=== PATIENT | female | born 1990 | race Caucasian/White ===

== ENCOUNTER → 2020-05-12 08:44 | Outpatient (BNVA) | payer MEDICAID, SELFPAY | PROVIDERS: Family Provider Nurse Practitioner Family; Visit Provider Psychiatry & Neurology Psychiatry | DX: F31.9 Bipolar disorder, unspecified (principal); Z63.0 Problems in relationship with spouse or partner | CPT/HCPCS: 90792 ==

== ENCOUNTER → 2020-06-27 14:48 | Outpatient (BNVA) | payer MEDICAID, SELFPAY | PROVIDERS: Family Provider Nurse Practitioner Family; Visit Provider Psychiatry & Neurology Psychiatry | DX: F31.9 Bipolar disorder, unspecified (principal); Z63.0 Problems in relationship with spouse or partner; F41.9 Anxiety disorder, unspecified | CPT/HCPCS: 99214 ==

== ENCOUNTER → 2020-09-19 15:28 | Outpatient (BNVA) | payer MEDICAID, SELFPAY | PROVIDERS: Family Provider Nurse Practitioner Family; Visit Provider Psychiatry & Neurology Psychiatry | DX: F31.9 Bipolar disorder, unspecified (principal); Z63.0 Problems in relationship with spouse or partner; F41.9 Anxiety disorder, unspecified | CPT/HCPCS: 99214 ==

== ENCOUNTER → 2020-10-18 14:44 | Outpatient (BNVA) | payer MEDICAID, SELFPAY | PROVIDERS: Family Provider Nurse Practitioner Family; PCP Nurse Practitioner Family; Visit Provider Obstetrics & Gynecology | DX: Z12.4 Encounter for screening for malignant neoplasm of cervix (principal); Z01.419 Encounter for gynecological examination (general) (routine) without abnormal findings | CPT/HCPCS: 88175 ==

== ENCOUNTER → 2020-10-19 15:49 | Outpatient (BNVA) | payer MEDICAID, SELFPAY | PROVIDERS: Family Provider Nurse Practitioner Family; PCP Nurse Practitioner Family; Visit Provider Psychiatry & Neurology Psychiatry | DX: F41.9 Anxiety disorder, unspecified (principal); F31.9 Bipolar disorder, unspecified; Z63.0 Problems in relationship with spouse or partner | CPT/HCPCS: 99213 ==

== ENCOUNTER → 2020-10-25 14:50 | Outpatient (BNVA) | payer MEDICAID, SELFPAY | PROVIDERS: Family Provider Nurse Practitioner Family; PCP Nurse Practitioner Family; Visit Provider Counselor Professional | DX: F31.9 Bipolar disorder, unspecified (principal); F41.9 Anxiety disorder, unspecified | CPT/HCPCS: 90834 ==

== ENCOUNTER 2020-11-01 02:39 | Emergency (ER) | payer MEDICAID, SELFPAY ==
[2020-11-01 02:59] VITALS: BP 186/100; PULSE 81; RESP 16; TEMP 36.9; O2SAT 98; BMI 37.8
--- NOTE | 2020-11-01 03:08 | ED_ITS ---
HPI - URI/Sore Throat General: Chief Complaint: Upper Respiratory Infection Stated Complaint: anxiety/ congestion Time Seen by Provider: 11/01/20 02:41 Source: patient and RN notes reviewed History of Present Illness: HPI Narrative: Patient presents to the emergency department complaint of sinus congestion cough. Patient describes face pain. Patient states she has her typical sinus type infection for this time of the year. Describes with greenish TMs to her rhinorrhea. Patient denies fever. MD elicited complaint: cough, rhinorrhea, nasal congestion and sinus pain Associated symptoms: Reports abdominal pain and nasal congestion; Deny chills, chest pain, fever(s), headache(s), nausea or vomiting Review of Systems General: Reports: 10 or more systems reviewed and unremarkable except in HPI and below Const: Denies: fever(s), chills, body aches or fatigue Eyes: Denies: change in vision or blurry vision ENMT: Reports: nasal congestion and post nasal drip; Denies: throat pain, hoarseness or mouth pain Card: Denies: chest pain, palpitations, irregular heart rhythm, edema, swelling of feet/ankles or lightheadedness Resp: Denies: dyspnea, productive cough, non-productive cough, wheezing or pain on inspiration GI: Reports: abdominal pain; Denies: nausea or vomiting : Reports: flank pain; Denies: difficulty voiding, dysuria, urinary frequency, urinary urgency or urinary hesitancy Musc: Denies: neck pain, back pain, extremity pain, extremity swelling, joint pain, joint swelling, joint redness, joint warmth or limited range of motion Skin/Breast: Denies: rash, pruritus, erythema or skin tenderness Neuro: Denies: headache(s), numbness in extremities or weakness in extremities Psych: Denies: anxiety or depression PFS ED PFSH: Medical History Bipolar disorder Diagnosed in her 20s and is controlled on medication managed by her primary care provider. 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 This is managed by her primary care provider and she does not clearly see an business center manager. No pertinent past medical history Denies diabetes, asthma, hypertension, seizures, DVT/PE PCP: Juliet Pena Surgical History History of myringotomy with tube placement, performed in 2010 Hx of laparoscopic gastric banding performed in April 2015, removed November 2018 at time of gastric bypass S/P gastric bypass 11/2018 Status post tonsillectomy and adenoidectomy performed in 2010 at same time of myringotomy. Family History Mother Thyroid condition Diabetes Stroke Heart disease Grandmother Thyroid condition maternal Hypertension maternal grandmother Diabetes maternal Heart disease maternal Stroke maternal Breast cancer matnernal, diagnosed at age 40 Family/Other Thyroid condition Maternal aunt, paternal uncle Hypertension maternal aunt Diabetes maternal aunt x 3 Heart disease maternal aunt Brother Thyroid condition Hypertension Denies family history of Colon cancer Ovarian cancer Hyperlipidemia Uterine cancer Female Reproductive History: Date of last menstrual period: 10/09/20 Physical Exam Const: COMMON NORMALS: no acute distress, average body habitus, patient oriented x3, no limitations, healthy appearing, alert and well nourished HENMT: COMMON NORMALS: normocephalic, atraumatic, external ears normal, EAC's normal, TM's normal bilaterally, Normal external nose present and Normal nasal mucous membranes and turbinates present HEAD & SCALP: normocephalic and atraumatic NOSE: Normal external nose present and Normal nasal mucous membranes and turbinates present EXTERNAL EAR: Yes external ears normal EXTERNAL AUDITORY CANAL: EAC's normal TYMPANIC MEMBRANE: TM's normal bilaterally Neck/C-Spine: COMMON NORMALS: full ROM, no lymphadenopathy, supple, no meningeal signs, no JVD, Thyroid normal and No carotid bruits THYROID: Thyroid normal Chest: COMMONS NORMALS: normal inspection of the chest, normal palpation of entire chest wall, normal inspection of the breasts and normal palpation of the breasts Breast/axilla inspection: Yes normal inspection of the breasts BREAST/AXILLA PALPATION: Yes normal palpation of the breasts Resp: COMMON NORMALS: normal respiratory effort, No retractions, No use of accessory muscles, clear to auscultation bilaterally and percussion normal AUSCULTATION: clear to auscultation bilaterally PERCUSSION: percussion normal Cardio: COMMON NORMALS: no JVD, regular rate, regular rhythm, S1 normal heart sound present, S2 normal heart sound present, No gallops present (Cardio), No clicks present (Cardio), No murmurs present (Cardio), No rub (Cardio) and Peripheral pulses 2+ throughout RATE: regular rate RHYTHM: regular rhythm HEART SOUNDS: S1 normal heart sound present and S2 normal heart sound present PERIPHERAL PULSES: Peripheral pulses 2+ throughout GI: COMMON NORMALS: Normal to inspection, nondistended, normoactive bowel sounds present, Soft to palpation, non-tender, No hepatosplenomegaly present, no masses and no bruits PALPATION: Yes Soft to palpation and Yes No hepatosplenomegaly present : COMMON NORMALS: Yes no CVA tenderness, Yes normal external appearance, Yes normal appearance of the vagina, Yes normal appearance of the cervix, Yes normal bimanual exam, Yes No adnexal tenderness and Yes no masses BLADDER/KIDNEY EXAM: Yes no CVA tenderness BIMANUAL EXAM - VAGINA & UTERUS: Yes normal bimanual exam Back/Pelvis: COMMON NORMALS: no CVA tenderness, thoracic and lumbar spine normal to inspection, no thoracic nor lumbar tenderness, thoraco-lumbar ROM normal and straight leg raise negative bilaterally Extremity: COMMON NORMALS: normal to inspection, full ROM, capillary refill normal, no joint enlargement, no clubbing, cyanosis or edema, no calf tenderness and no pedal edema Neuro: COMMON NORMALS: patient oriented x3 SENSORIUM/ORIENTATION: Yes alert MENINGEAL SIGNS: Yes no meningeal signs Course ED course: Mom was offered nasal swabs for flu coronavirus and strep. Patient declined. Patient instructed to take Claritin 10 mg daily. And 25 mg at bedtime. Patient given a prescription for Zithromax and given the following instructions. For upper respiratory infection. Cool-mist humidifier as needed. Salt water gargles for sore throat if needed. May use any [id number] cough drop that has benzocaine as an active ingredient to help sooth throat. Encourage p.o. fluids. Take all medications if prescribed as directed. Follow- up with your primary care physician in 2 to 3 days. Tylenol Motrin as needed as needed for fever or pain. Vital Signs: Vital signs: Vital Signs Temperature 98.5 F 11/01/20 02:59 Pulse Rate 81 11/01/20 02:59 Respiratory Rate 16 11/01/20 02:59 Blood Pressure 186/100 11/01/20 02:59 Pulse Oximetry 98 11/01/20 02:59 MDM - URI/Sore Throat Differential Diagnosis: Upper Respiratory Differential Diagnosis: Likely upper respiratory infection, sinusitis and viral infection Medical Records: Attestation: I reviewed the patient's medical records. Discharge Plan Discharge Patient Disposition: Home Clinical Impression: Upper respiratory infection Condition: Stable Prescriptions: New azithromycin [Zithromax Z-Td] 250 mg tablet 250 mg PO DAILY 6 Days RF: 0 No Action levothyroxine 200 mcg capsule 200 mcg PO DAILY RF: 0 etonogestrel-ethinyl estradiol [NuvaRing] 0.12-0.015 mg/24 hr ring 1 vag ring vaginal .monthly Qty: 1 RF: 0 bupropion HCl [Wellbutrin SR] 150 mg tablet sustained-release 12 hr 150 mg PO BID 30 Days Qty: 60 RF: 3 lamotrigine [Lamictal] 200 mg tablet 200 mg PO DAILY 30 Days Qty: 30 RF: 3 sertraline 50 mg tablet 50 mg PO DAILY 30 Days Qty: 30 RF: 3 Discharge Orders: Discharge ED (Routine); Ordered 11/01/20 Ordered By: Gary Bahena Referrals: Juliet Pena [Primary Care Provider] - Celi Haas [Family Provider] - Discharge Diet: Advance as tolerated Discharge Activity: Resume usual activity Patient Instructions: Opioid Safety Activity Restrictions/Additional Instructions: Patient instructed to take Claritin 10 mg daily. And 25 mg at bedtime. Patient given a prescription for Zithromax and given the following instructions. For upper respiratory infection. Cool-mist humidifier as needed. Salt water gargles for sore throat if needed. May use any dacg-bjz-hbpwldg cough drop that has benzocaine as an active ingredient to help sooth throat. Encourage p.o. fluids. Take all medications if prescribed as directed. Follow-up with your primary care physician in 2 to 3 days. Tylenol Motrin as needed as needed for fever or pain. 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
[2020-11-01 03:26] VITALS: BP 155/99; PULSE 82; RESP 20; O2SAT 97
== END 2020-11-01 03:20 | disposition home or self-care (01) ==
PROVIDERS: Emergency Provider Emergency Medicine; Family Provider Nurse Practitioner Family; PCP Nurse Practitioner Family
DX: J06.9 Acute upper respiratory infection, unspecified (principal)
CPT/HCPCS: 99282

== ENCOUNTER → 2020-11-08 14:42 | Outpatient (BNVA) | payer MEDICAID, SELFPAY | PROVIDERS: Family Provider Nurse Practitioner Family; PCP Nurse Practitioner Family; Visit Provider Counselor Professional | DX: F31.9 Bipolar disorder, unspecified (principal); F41.9 Anxiety disorder, unspecified | CPT/HCPCS: 90834 ==

== ENCOUNTER → 2020-11-22 08:54 | Outpatient (BNVA) | payer MEDICAID, SELFPAY | PROVIDERS: Family Provider Nurse Practitioner Family; PCP Nurse Practitioner Family; Visit Provider Counselor Professional | DX: F31.9 Bipolar disorder, unspecified (principal); F41.9 Anxiety disorder, unspecified | CPT/HCPCS: 90834 ==

== ENCOUNTER → 2020-12-20 14:45 | Outpatient (BNVA) | payer MEDICAID, SELFPAY | PROVIDERS: Family Provider Nurse Practitioner Family; PCP Nurse Practitioner Family; Visit Provider Counselor Professional | DX: F31.9 Bipolar disorder, unspecified (principal); F41.9 Anxiety disorder, unspecified | CPT/HCPCS: 90834 ==

== ENCOUNTER → 2020-12-21 15:49 | Outpatient (BNVA) | payer MEDICAID, SELFPAY | PROVIDERS: Family Provider Nurse Practitioner Family; PCP Nurse Practitioner Family; Visit Provider Psychiatry & Neurology Psychiatry | DX: F31.9 Bipolar disorder, unspecified (principal); F41.9 Anxiety disorder, unspecified; Z63.0 Problems in relationship with spouse or partner | CPT/HCPCS: 99214 ==

== ENCOUNTER → 2021-04-02 14:54 | Outpatient (BNVA) | payer OTHER, SELFPAY | PROVIDERS: Family Provider Nurse Practitioner Family; PCP Nurse Practitioner Family; Visit Provider Psychiatry & Neurology Psychiatry | DX: F31.9 Bipolar disorder, unspecified (principal); Z63.0 Problems in relationship with spouse or partner; F41.9 Anxiety disorder, unspecified | CPT/HCPCS: 99214 ==

== ENCOUNTER → 2021-06-08 14:10 | Outpatient (BNVA) | payer MEDICAID, SELFPAY | PROVIDERS: Family Provider Nurse Practitioner Family; PCP Nurse Practitioner Family; Visit Provider Obstetrics & Gynecology | DX: Z20.822 Contact with and (suspected) exposure to COVID-19 (principal); Z30.2 Encounter for sterilization | CPT/HCPCS: 87635 ==

== ENCOUNTER 2021-06-14 06:29 | Day surgery (SDC) | payer MEDICAID, SELFPAY ==
[2021-06-13 14:05] VITALS: BMI 49.1
[2021-06-14] VITALS (10 sets, daily range): BP systolic 130–159; BP diastolic 72–103; PULSE 67–100; RESP 15–25; TEMP 36.3–36.9; O2SAT 93–100
[2021-06-14 06:59] LABS: OR HCG Qualitative Urine Negative (Negative)
[2021-06-14] MEDS: sodium chloride 0.9% 1,000 ML 30 ML IV (07:11)
--- NOTE | 2021-06-14 07:41 | W.PM.OPSUD ---
Surgery/Procedure H&P Update DATE OF PROCEDURE: June 14, 2021 DATE H&P PERFORMED: 06/04/21 H&P UPDATE INFORMATION: I have reviewed H&P completed within last 30 days, I have examined patient prior to procedure, No changes to prior documentation and H&P is in [facility] EMR on date indicated PREOP DIAGNOSIS: Multiparity desiring sterilization PLANNED PROCEDURE: Operation Date: 06/14/21 08:00 Proposed Procedures p Lap Fulg,Removal of Tubes Sterilization 04829 Z30.2(Not Applicable) - Margaret Valverde MD
--- NOTE | 2021-06-14 07:57 | ANES.PREANE2 ---
Pre-Anesthetic Assessment Pre-Anesthetic Assessment: Height/Weight: Height 1.57 m Weight 122.016 kg Temp Pulse Resp BP Pulse Ox 97.4 F L 100 16 132/87 98 06/14/21 06:53 06/14/21 06:53 06/14/21 06:53 06/14/21 06:53 06/14/21 06:53 Preop Diagnosis: Multiparity desiring sterilization Proposed Procedure: Operation Date: 06/14/21 08:00 Proposed Procedures p Lap Fulg,Removal of Tubes Sterilization 36246 Z30.2(Not Applicable) - Margarte Valverde MD Was Beta Sol taken within 24 hours: N/A Was Clonidine taken within 24 hours: N/A Last intake: Intake Last Liquid Date 06/13/21 Last Liquid Time 21:30 Last Solid Date 06/13/21 Last Solid Time 21:30 Social: Social History: Tobacco Exam: Pre-Anes Outpt Exam: alert, oriented x 3, clear to auscultation bilaterally and regular rate & rhythm Airway: Submandibular: WNL Cervical ROM: WNL MP: 2 History/ROS: No significant complaints Metabolic: Metabolic: Thyroid Neuropsych: Neuropsych: Bipolar Anesthetic Plan: ASA status: 2 Anesthesia: Anesthesia Evaluation and General Risk of > 500 ml blood loss (7ml/kg in children): No Meds/Allergies Current Medications: Current Medications Generic Name Dose Route Start Last Admin Trade Name Freq PRN Reason Stop Dose Admin Sodium Chloride 1,000 mls @ 30 ml s/hr 06/14/21 06:45 06/14/21 07:11 Sodium Chloride 0.9% IV 06/15/21 06:44 30 mls/hr .Q24H PARISA Administration PFSH Anesthesia PFSH: Medical History Bipolar disorder Diagnosed in her 20s and is controlled on medication managed by her primary care provider. 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 This is managed by her primary care provider and she does not clearly see an sharepoint solutions developer. No pertinent past medical history Denies diabetes, asthma, hypertension, seizures, DVT/PE PCP: Juliet Pena Surgical History History of myringotomy with tube placement, performed in 2010 Hx of laparoscopic gastric banding performed in April 2015, removed November 2018 at time of gastric bypass S/P gastric bypass 11/2018 Status post tonsillectomy and adenoidectomy performed in 2010 at same time of myringotomy. Family History Mother Thyroid condition Diabetes Stroke Heart disease Grandmother Thyroid condition maternal Hypertension maternal grandmother Diabetes maternal Heart disease maternal Stroke maternal Breast cancer matnernal, diagnosed at age 40 Family/Other Thyroid condition Maternal aunt, paternal uncle Hypertension maternal aunt Diabetes maternal aunt x 3 Heart disease maternal aunt Brother Thyroid condition Hypertension Denies family history of Colon cancer Ovarian cancer Hyperlipidemia Uterine cancer Female Reproductive History: Date of last menstrual period: 05/23/21 Data Anesthesia Other Labs: Laboratory Results - last 48 hr 06/14/21 06:38 Urine HCG, Qual Negative Cardiac Studies: No Data to Display
[2021-06-14 08:03] LABS: Basophils % 0.5 %; Eosinophils # 0.1 10^3/uL (0.0-0.8); Eosinophils % 1.8 %; Hematocrit 36.1 % (37.0-47.0); Lymphocytes # 1.8 10^3/uL (0.8-4.8); Lymphocytes % 29.4 %; Mean Corpuscular HGB Conc 30.5 g/dL (30.0-36.0); Mean Corpuscular Hemoglobin 23.6 pg (28.0-34.0); Mean Corpuscular Volume 77.3 fl (81-99); Monocytes # 0.4 10^3/uL (0.2-0.9); Monocytes % 6.7 %; Neutrophils # 3.65 10^3/uL (1.8-7.7); Neutrophils % 61.4 %; Nucleated Red Blood Cells % 0 %; Platelet Count 270 10^3/cmm (130-400); Red Blood Count 4.67 10^6/uL (4.1-5.3); Red Cell Distribution Width 15.5 % (12.1-15.1)
--- NOTE | 2021-06-14 09:45 | P.OP_ITS ---
Operative Report Date of procedure: June 14, 2021 OPERATIVE REPORT Date of surgery: 06/14/2021 Date of dictation: 06/14/2021 Preoperative diagnosis: Morbid obesity with a BMI of 49, bipolar disorder, multiparity desiring sterilization with total salpingectomy Postoperative diagnosis/findings: Examination under anesthesia 6 to 8-week size anteverted uterus, minimal prolapse noted. Same, normal tubes and ovaries bilaterally-right tube had a subcentimeter paratubal cyst which was removed, normal uterus, normal appendix noted, no DIRECTOR OF BUSINESS SERVICES pathology Procedure done: Laparoscopic bilateral total salpingectomy for sterilization Specimens removed/disposition of specimens: Right and left fallopian tube sent to pathology Surgeon: Dr. Margaret Green golf player assistant: Keesha Branham Anesthesia: General endotracheal tube anesthesia Estimated blood loss: Less than 25 ml Intravenous fluids: 700 mL of LR Urine output: 100 mL of clear urine at the end of procedure Medications: As per anesthesia records Complications: None, patient was extubated and taken to the recovery room in a stable condition. PROCEDURE: After consents were signed patient was taken to the operating room where she was placed under general anesthesia without any difficulty. She was placed supine on the table in the lithotomy position. Exam under anesthesia revealed findings noted above. She was then prepped and draped in usual sterile fashion. Weighted speculum and anterior wall retractors were placed in the vagina, cervix visualized and grasped with a tenaculum. ZUMI uterine manipulator was placed into the uterus without any difficulty. Catheter was placed, instruments were removed from the vagina and the legs were lowered. Attention was turned towards the abdomen where local anesthetic was injected in to her umbilicus. A 10 mm skin incision was made and a 10 mm port was placed through the umbilicus using an open technique--- fascia was identified and tented up with [place] clamps and directly incised using curved Mayos. Peritoneum was then bluntly entered digitally and palpation revealed no adhesions except for preperitoneal fat around site of entry. White trocar was then attached to the fascia and inflated. Once intra-abdominal entry was confirmed gas was turned on and intra-abdominal opening pressure was 2. The abdomen is insufflated to the pressure was 14. Survey of the abdomen revealed findings noted above. Two 5 mm trocar was placed into the left and right lower quadrant under direct visualization after injecting local anesthetic. The Voyant device was used to clamp, cauterize and then cut the mesosalpinx under the fallopian tube starting at the fimbriated end and moving towards the uterus. This was done in a sequen tial fashion in such a way that the entire fallopian tube was from the sidewall and the uterus. The small cornual stump was cauterized as well. This was done first on the right side and then the left side without any difficulty. The right and left fallopian tubes were taken out of the umbilical port without any difficulty. The right paratubal cyst was taken out as well at time of rem oval of the right fallopian tube. No bleeding was noted at sites of surgery. Trochars were removed under direct visualization. All instruments removed from the abdomen and the abdomen was desufflated. The fascia on the umbilical port was closed with 0 Vicryl in a continuous fashion and good reapproximation was obtained-care was taken to tent up the fascia throughout the closure. The skin incisions was closed with 4-0 Monocryl in a subcuticular fashion good reapproximation and hemostasis was noted. The incisions were dressed with Steri- Strips Telfa and Tegaderm. The ZUMI and Khan catheter were removed and good hemostasis was noted. The patient was extubated without any difficulty and taken to the recovery room in a stable condition. FOLLOW UP: Follow-up in 2 weeks and 6 weeks with surgeon MEDICATION ON DISCHARGE: Colace 100 mg by mouth every 12 hours when necessary constipation, 30 tablets, no refills Ibuprofen 800 mg by mouth every 8 hours when necessary pain, 60 tablets, no ref ills. [place] 5/325 mg 1 tablet by mouth every 6 hours when necessary pain,25 tablets, no refills Continue other home medication-stop NuvaRing DISPOSITION: Home in a stable condition This documentation was created by [employer] protein chemist software (known for inherent protein chemist error). Every effort was made to assure accuracy of protein chemist. Any obvious errors or omissions should be clarified with the author of the document. Pre-op Diagnosis: Multiparity desiring sterilization
[2021-06-14] MEDS: HYDROcodone-acetaminophen 5-325 mg Tablet 1 TAB PO (10:10)
[2021-06-14] MEDS: ibuprofen 800 mg tablet PO (10:42)
--- NOTE | 2021-06-14 12:53 | ANE.PACU2 ---
Inpatient post-anesthesia follow up: Airway intact: Yes Vital signs: Temperature 97.9 F Pulse Rate 80 Respiratory Rate 16 Blood Pressure 155/82 Pulse Oximetry 98 Oxygen Delivery Me thod Room Air Oxygen Flow Rate 2.0 Fraction of Inspir ed Oxygen Hydration adequate: Yes Nausea and vomiting: No Pain level: 2 Mental status: Baseline
== END 2021-06-14 11:37 | disposition home or self-care (01) ==
PROVIDERS: PCP Nurse Practitioner Family; Visit Provider Obstetrics & Gynecology
PROC: (CPT 58661; principal; 2021-06-14 08:00)
DX: Z30.2 Encounter for sterilization (principal); N85.4 Malposition of uterus; N83.8 Other noninflammatory disorders of ovary, fallopian tube and broad ligament; E06.3 Autoimmune thyroiditis; F17.210 Nicotine dependence, cigarettes, uncomplicated; F31.9 Bipolar disorder, unspecified; E66.01 Morbid (severe) obesity due to excess calories; Z68.42 Body mass index [BMI] 45.0-49.9, adult; Z98.84 Bariatric surgery status; Z83.49 Family history of other endocrine, nutritional and metabolic diseases
CPT/HCPCS: 58661; 36415; 81025; 84703; 85025; 86850; 86900; 88302; J1100; J1200; J2250; J2405; J2704; J2710; J3010; J3490; J7030

== ENCOUNTER 2021-07-22 10:08 | Emergency (ER) | payer MEDICAID, SELFPAY ==
[2021-07-22 10:15] VITALS: BP 178/136; PULSE 91; RESP 18; TEMP 36.9; O2SAT 98; BMI 52.0
--- NOTE | 2021-07-22 10:22 | XRR_ITS ---
PROCEDURE INFORMATION: Exam: XR Chest Exam date and time: 07/22/2021 10:22 AM Age: 30 years old Clinical indication: Cough TECHNIQUE: Imaging protocol: XR of the chest. Views: 1 view. Total images: 1 COMPARISON: CR Humerus RIGHT* [id number] 11/30/2017 1:17 PM FINDINGS: Lungs: Unremarkable. No consolidation. Pleural spaces: Unremarkable. No pleural effusion. No pneumothorax. Heart/Mediastinum: Unremarkable. No cardiomegaly. Bones/joints: Unremarkable. XR/XR chest 1V portable [id number] IMPRESSION: No acute findings. Radiation Dose CTDIVOL = (mGy): DLP = (mGy-cm)
--- NOTE | 2021-07-22 10:24 | ED_ITS ---
HPI - COVID General: Chief Complaint: Upper Respiratory Infection Stated Complaint: cough sob sore throat unable taste Time Seen by Provider: 07/22/21 10:22 Source: patient Mode of arrival: ambulatory Limitations: no limitations Triage information: Has fever, cough or shortness of breath . No known COVID + exposure last 14 days History of Present Illness: HPI Narrative: Day 5 of illness complaint of upper respiratory congestion, cough, shortness of breath with exertion. Lost sense of smell or taste within the last 24 hours. Covid-19 vaccinated as of November 2020 complaint: has COVID symptoms Prior covid testing: no COVID 19 common symptoms: positive cough, non-productive cough, dyspnea, fatigue, body aches, loss of sense of smell and/or taste, throat pain, nasal congestion and nausea COVID 19 other sytmptoms: negative chest pressure, chest pain, pleuritic pain, requiring oxygen, requiring more oxygen, respiratory distress, cyanosis, lethargy, confusion, new neurological complaints or other concerning symptoms Onset (ago): day(s) (5 days ago) Severity: mild Treatment prior to arrival: cold medicine COVID Results: SARS-CoV-2 Antigen (Rapid) Negative (Negative) 07/22/21 10:36 07/22/21 SARS-CoV-2 RNA (RT-PCR) Not detected (NOT DETECTED) 06/08/21 14:10 06/08/21 Review of Systems General: Reports: 10 or more systems reviewed and unremarkable except in HPI and below Const: Reports: body aches and fatigue ENMT: Reports: throat pain and nasal congestion Card: Denies: chest pain Resp: Reports: dyspnea and non-productive cough GI: Reports: nausea Neuro: Denies: confusion PFSH ED PFSH: Medical History (Updated 07/22/21 @ 12:08 by Elana Benitez APRN) Bipolar disorder Diagnosed in her 20s and is controlled on medication managed by her primary care provider. 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 This is managed by her primary care provider and she does not clearly see an recruitment advertising manager. No pertinent past medical history Denies diabetes, asthma, hypertension, seizures, DVT/PE PCP: Juliet Pena Surgical History (Updated 07/22/21 @ 10:40 by Elana Benitez APRN) History of myringotomy with tube placement, performed in 2010 Hx of laparoscopic gastric banding performed in April 2015, removed November 2018 at time of gastric bypass S/P gastric bypass 11/2018 Status post tonsillectomy and adenoidectomy performed in 2010 at same time of myringotomy. Status post tubal ligation 06/14/2021----laparoscopic bilateral salpingectomy for sterilization performed by Dr. Green at [facility] [place]. Pathology showed benign fallopian tubes bilaterally without malignancy Family History Mother Thyroid condition Diabetes Stroke Heart disease Grandmother Thyroid condition maternal Hypertension maternal grandmother Diabetes maternal Heart disease maternal Stroke maternal Breast cancer matnernal, diagnosed at age 40 Family/Other Thyroid condition Maternal aunt, paternal uncle Hypertension maternal aunt Diabetes maternal aunt x 3 Heart disease maternal aunt Brother Thyroid condition Hypertension Denies family history of Colon cancer Ovarian cancer Hyperlipidemia Uterine cancer Female Reproductive History: Date of last menstrual period: 05/23/21 Physical Exam Const: COMMON NORMALS: no acute distress, average body habitus, patient oriented x3, no limitations, alert and well nourished GENERAL APPEARANCE: cooperative, comfortable and well kempt NUTRITIONAL APPEARANCE: obese HENMT: COMMON NORMALS: normocephalic, atraumatic, hearing grossly normal bilaterally, external ears normal, EAC's normal, TM's normal bilaterally, Normal external nose present, Normal nasal mucous membranes and turbinates present and moist oral mucous membranes HEAD & SCALP: normal to inspection, normocephalic and atraumatic NOSE: Normal external nose present and Normal nasal mucous membranes and turbinates present EXTERNAL EAR: Yes external ears normal EXTERNAL AUDITORY CANAL: EAC's normal TYMPANIC MEMBRANE: TM's normal bilaterally Eye: COMMON NORMALS: Equal, round and reactive pupils present, EOMs intact bilaterally, conjunctivae normal and normal visual olson by confrontation GENERAL EYE: appearance normal, both eyes and all related structures CONJUNCTIVA: Yes conjunctivae normal PUPIL: Yes Equal, round and reactive pupils present Neck/C-Spine: COMMON NORMALS: full ROM, no lymphadenopathy, supple and no JVD Lymph: LYMPHATIC: no lymphadenopathy noted Resp: COMMON NORMALS: normal respiratory effort, No retractions, No use of accessory muscles and clear to auscultation bilaterally EFFORT & INSPECTION: Yes able to speak in complete sentences AUSCULTATION: clear to auscultation bilaterally Cardio: COMMON NORMALS: no JVD, regular rate, regular rhythm, S1 normal heart sound present and S2 normal heart sound present RATE: regular rate RHYTHM: regular rhythm HEART SOUNDS: S1 normal heart sound present and S2 normal heart sound present GI: COMMON NORMALS: Normal to inspection, nondistended, normoactive bowel sounds present, Soft to palpation and non-tender PALPATION: Yes Soft to palpation Extremity: GENERAL: Yes normal exam except as noted Neuro: COMMON NORMALS: patient oriented x3 SENSORIUM/ORIENTATION: Yes alert Psych: APPEARANCE: Yes well kempt Skin: COMMON NORMALS: no rashes or lesions noted and no wounds GENERAL SKIN EXAM: no rashes or lesions noted Course ED course: Symptoms started 5 days prior fatigue headache along with nasal congestion and cough. Awoke in the last 24 hours with anosmia presented to the ER for this reason. Vital Signs: Vital signs: Vital Signs Temperature 98.4 F 07/22/21 10:15 Pulse Rate 69 07/22/21 10:40 Respiratory Rate 18 07/22/21 10:40 Blood Pressure 167/119 07/22/21 10:40 Pulse Oximetry 98 07/22/21 10:40 MDM - COVID MDM Narrative: Medical decision making narrative: Rapid Covid, influenza, rapid strep all negative. PCR pending. Patient is to continue isolation until PCR results, and schedule follow-up appointment with primary care provider. Differential Diagnosis: Differential diagnosis: Likely COVID 19, influenza, other viral infection and pneumonia Medical Records: Attestation: I reviewed the patient's medical records. Lab Data: Attestation: I reviewed the patient's lab results. Lab results narrative: Recent blood loss related to heavy menstrual flow, patient is being followed by women's health. Anemia was present prior to her procedure 4 weeks ago, worsened since procedure due to heavy flow. Labs: Lab Results 07/22/21 07/22/21 07/22/21 10:36 10:49 10:49 WBC 7.3 10^3/uL 10^3/ uL (4.0-10.0) RBC 4.38 10^6/uL 10^6 /uL (4.1-5.3) Hgb 10.3 g/dL L g/dL (11.5-15.3) Hct 33.1 % L % (37.0-47.0) MCV 75.6 fl L fl (81-99) MCH 23.5 pg L pg (28.0-34.0) MCHC 31.1 g/dL g/dL (30.0-36.0) RDW 15.0 % % (12.1-15.1) Plt Count 273 10^3/cmm 10^3 /cmm (130-400) MPV 10.0 fL fL (7.4-10.4) Neut % (Auto) 60.1 % % Lymph % (Auto) 29.5 % % [place] % (Auto) 8.1 % % Eos % (Auto) 1.5 % % Baso % (Auto) 0.5 % % Neut # (Auto) 4.40 10^3/uL 10^3 /uL (1.8-7.7) Lymph # (Auto) 2.2 10^3/uL 10^3/ uL (0.8-4.8) [place] # (Auto) 0.6 10^3/uL 10^3/ uL (0.2-0.9) Eos # (Auto) 0.1 10^3/uL 10^3/ uL (0.0-0.8) Baso # (Auto) 0.0 10^3/uL 10^3/ uL (0.0-0.1) Nucleated RBC % (a uto) 0.3 % % Nucleated RBCs # 0.0 /100WBC /100W BC Sodium 138 mmol/L mmol/L (136-145) Potassium 3.6 mmol/L mmol/L (3.5-5.1) Chloride 102 mmol/L mmol/L (98-107) Anion Gap 18.6 (5-19) BUN 9 mg/dL mg/dL (6-20) Creatinine 0.6 mg/dL mg/dL (0.5-0.9) GFR Calculation 116.6 mL/min mL/m in (90-130) Glucose 84 mg/dL mg/dL (65-115) Total Bilirubin 0.3 mg/dL mg/dL (0.15-1.2) Alkaline Phosphata se 94 IU/L IU/L (35-105) Globulin 2.4 g/dL g/dL (1.3-4.6) Free T4 0.86 ng/dL ng/dL (0.82-1.77) HCG, Qual Influenza Type A A g Influenza Type B A g SARS-CoV-2 Ag (Rap id) Negative (Negative) Group A Strep Rapi d 07/22/21 07/22/21 07/22/21 10:49 11:06 11:06 WBC RBC Hgb Hct MCV MCH MCHC RDW Plt Count MPV Neut % (Auto) Lymph % (Auto) [place] % (Auto) Eos % (Auto) Baso % (Auto) Neut # (Auto) Lymph # (Auto) [place] # (Auto) Eos # (Auto) Baso # (Auto) Nucleated RBC % (a uto) Nucleated RBCs # Sodium Potassium Chloride Anion Gap BUN Creatinine GFR Calculation Glucose Total Bilirubin Alkaline Phosphata se Globulin Free T4 HCG, Qual Negative (Negative) Influenza Type A A g Negative (Negative) Influenza Type B A g Negative (Negative) SARS-CoV-2 Ag (Rap id) Group A Strep Rapi d Negative (Negative) COVID Results: SARS-CoV-2 Antigen (Rapid) Negative (Negative) 07/22/21 10:36 07/22/21 SARS-CoV-2 RNA (RT-PCR) Not detected (NOT DETECTED) 06/08/21 14:10 06/08/21 Discharge Plan Discharge Patient Disposition: Home Clinical Impression: Sinusitis Qualifiers: Sinusitis location: frontal Chronicity: acute Recurrence: non-recurrent Qualified Code(s): J01.10 - Acute frontal sinusitis, unspecified Condition: Stable Prescriptions: No Action levothyroxine 200 mcg capsule 200 mcg PO DAILY RF: 0 bupropion HCl [Wellbutrin SR] 150 mg tablet sustained-release 12 hr 150 mg PO BID 30 Days Qty: 60 RF: 3 lamotrigine [Lamictal] 200 mg tablet 200 mg PO DAILY 30 Days Qty: 30 RF: 3 hydrocodone-acetaminophen 5-325 mg tablet 1 tab PO Q6H PRN (Reason: pain) RF: 0 sulfamethoxazole-trimethoprim [Bactrim DS] 800-160 mg tablet 1 tab PO BID 7 Days Qty: 14 RF: 0 ibuprofen 800 mg tablet 800 mg PO Q8H Qty: 30 RF: 0 docusate sodium 100 mg Capsule 100 mg PO BID PRN (Reason: constipation) Qty: 30 RF: 0 Discharge Orders: Discharge ED (Routine); Ordered 07/22/21 Ordered By: Elana Benitez Referrals: Juliet Pena [Primary Care Provider] - Discharge Diet: Usual diet Discharge Activity: Resume usual activity Patient Instructions: Opioid Safety Activity Restrictions/Additional Instructions: Quarantine until final results of PCR Covid testing. Coding Level of Care Code ED Regulatory Compliance Engineer for [employer] Fwd Exam Comprehensive
[2021-07-22 10:40] VITALS: BP 167/119; PULSE 69; RESP 18; O2SAT 98
[2021-07-22 11:23] LABS: Basophils % 0.5 %; Eosinophils # 0.1 10^3/uL (0.0-0.8); Eosinophils % 1.5 %; Hematocrit 33.1 % (37.0-47.0); Hemoglobin 10.3 g/dL (11.5-15.3); Lymphocytes # 2.2 10^3/uL (0.8-4.8); Lymphocytes % 29.5 %; Mean Corpuscular HGB Conc 31.1 g/dL (30.0-36.0); Mean Corpuscular Hemoglobin 23.5 pg (28.0-34.0); Mean Corpuscular Volume 75.6 fl (81-99); Monocytes # 0.6 10^3/uL (0.2-0.9); Monocytes % 8.1 %; Neutrophils % 60.1 %; Nucleated Red Blood Cells % 0.3 %; Platelet Count 273 10^3/cmm (130-400); Red Blood Count 4.38 10^6/uL (4.1-5.3); White Blood Count 7.3 10^3/uL (4.0-10.0)
[2021-07-22 11:28] LABS: SARS Covid-2 Antigen Negative (Negative)
[2021-07-22 11:42] LABS: HCG, Serum Qual Negative (Negative)
[2021-07-22 11:46] LABS: Influenza A by IFA Negative (Negative); Influenza B by IFA Negative (Negative); Rapid Strep A Test Negative (Negative)
[2021-07-22 12:02] LABS: Alanine Aminotransferase 35 U/L (0-33); Albumin Level 3.4 g/dL (3.5-5.2); Alkaline Phosphatase 94 IU/L (35-105); Anion Gap 18.6 (5-19); Aspartate Amino Transferase 74 U/L (0-32); Blood Urea Nitrogen 9 mg/dL (6-20); Calcium 7.7 mg/dL (8.5-10.5); Carbon Dioxide 21 mmol/L (22-29); Chloride 102 mmol/L (98-107); Free T4 Free Thyroxine 0.86 ng/dL (0.82-1.77); Globulin 2.4 g/dL (1.3-4.6); Glomerular Filtration Rate 116.6 mL/min (90-130); Glucose 84 mg/dL (65-115); Osmolality Calculated 284 mOsm/kg (285-295); Potassium 3.6 mmol/L (3.5-5.1); Sodium 138 mmol/L (136-145); Thyroid Stimulating Hormone 25.39 uIU/mL (0.27-4.20); Total Bilirubin 0.3 mg/dL (0.15-1.2); Total Protein 5.8 g/dL (6.6-8.7)
[2021-07-23 17:22] LABS: Quest SARS-CoV-2 RNA NOT DETECTED (NOT DETECTED)
--- NOTE | 2021-07-25 15:43 | PC.NURSE ---
Patient notified of negative covid-19 results
== END 2021-07-22 12:36 | disposition home or self-care (01) ==
PROVIDERS: Emergency Provider Nurse Practitioner Family; PCP Nurse Practitioner Family
DX: J01.10 Acute frontal sinusitis, unspecified (principal); Z20.822 Contact with and (suspected) exposure to COVID-19
CPT/HCPCS: 71045; 80053; 84439; 84443; 84703; 85025; 87081; 87426; 87635; 87804; 87880; 99283